=== PATIENT | male | born 1940 | race Caucasian/White ===

== ENCOUNTER 2024-04-19 09:23 | Day surgery (SDC) | payer MEDICARE, OTHER ==
[2024-04-19] MEDS: Polymyxin B/Trimethoprim 10 ML Bottle EYELF SCH (09:57)
[2024-04-19] MEDS: Phenylephrine 2.5% Ophth Soln 2 ML Bot EYELF SCH (10:00)
[2024-04-19] MEDS: Brimonidine 0.2% Ophth Soln 5 ML Bottle EYELF SCH (10:00)
[2024-04-19] MEDS: Pilocarpine 4% Ophth Soln 15 ML Bot EYELF SCH (10:00)
[2024-04-19] MEDS: Cefuroxime 10 MG/ML SYRINGE EYELF SCH (10:00)
[2024-04-19] MEDS: Lidocaine 1% PF 2 ML SDV INJECT SCH (10:00)
[2024-04-19] MEDS: Tetracaine HCl/PF 0.5% 4 ML Bottle EYEBOTH SCH (10:00)
[2024-04-19] MEDS: Tropicamide 1% Ophth Soln 3 ML Bottle EYELF SCH (10:07)
== END 2024-04-19 11:26 | disposition home or self-care (01) ==
LOC: JD.SDS 09:23
PROVIDERS: ATTEND Ophthalmology
DX: H25.813 Combined forms of age-related cataract, bilateral (principal); H21.41 Pupillary membranes, right eye; H21.81 Floppy iris syndrome; H35.372 Puckering of macula, left eye; H17.813 Minor opacity of cornea, bilateral; H16.103 Unspecified superficial keratitis, bilateral; H16.223 Keratoconjunctivitis sicca, not specified as Sjogren's, bilateral; H02.831 Dermatochalasis of right upper eyelid; H02.834 Dermatochalasis of left upper eyelid; H57.813 Brow ptosis, bilateral; I10 Essential (primary) hypertension; I25.2 Old myocardial infarction; Z87.891 Personal history of nicotine dependence; Z79.82 Long term (current) use of aspirin; Z79.899 Other long term (current) drug therapy; Z88.5 Allergy status to narcotic agent
CPT/HCPCS: 66982; A9270; J0697; J3490

== ENCOUNTER 2024-05-24 12:54 | Day surgery (SDC) | payer MEDICARE, OTHER ==
[2024-05-24] MEDS: Polymyxin B/Trimethoprim 10 ML Bottle EYERT SCH (13:41)
[2024-05-24] MEDS: Brimonidine 0.2% Ophth Soln 5 ML Bottle EYERT SCH (13:46)
[2024-05-24] MEDS: Phenylephrine 2.5% Ophth Soln 2 ML Bot EYERT SCH (14:00)
[2024-05-24] MEDS: Tropicamide 1% Ophth Soln 3 ML Bottle EYERT SCH (14:06)
[2024-05-24] MEDS: Tetracaine HCl/PF 0.5% 4 ML Bottle EYEBOTH SCH (14:46)
[2024-05-24] MEDS: Lidocaine 1% PF 2 ML SDV INJECT SCH (15:15)
[2024-05-24] MEDS: Cefuroxime 10 MG/ML SYRINGE EYERT SCH (15:30)
[2024-05-24] MEDS: Pilocarpine 4% Ophth Soln 15 ML Bot EYERT SCH (15:31)
== END 2024-05-24 15:43 | disposition home or self-care (01) ==
LOC: JD.SDS 12:54
PROVIDERS: ATTEND Ophthalmology
DX: H25.811 Combined forms of age-related cataract, right eye (principal); H21.81 Floppy iris syndrome; H21.41 Pupillary membranes, right eye; I10 Essential (primary) hypertension; Z87.891 Personal history of nicotine dependence; Z79.899 Other long term (current) drug therapy; Z88.5 Allergy status to narcotic agent
CPT/HCPCS: 66982; A9270; J0697; J3490